=== PATIENT | female | born 1980 | race Caucasian/White ===

== ENCOUNTER 2017-09-14 19:26 | Observation (INO) | payer BC ==
--- NOTE | 2017-09-14 19:36 | EDM.PDOC ---
ED HPI GENERAL MEDICAL PROBLEM - General Chief Complaint: Abdominal Pain Stated Complaint: ABDOMINAL PAIN Time Seen by Provider: 09/14/17 19:29 Source of Information: Reports: Patient History Limitations: Reports: No Limitations - History of Present Illness INITIAL COMMENTS - FREE TEXT/NARRATIVE: HISTORY AND PHYSICAL: History of present illness: [36-year-old female presenting [place] with chief complaint of right lower quadrant pain intermittently over the past 7 days. Patient states that approximately 7 days ago she had some right lower quadrant pain. Describes it as sharp and radiating into her right lower quadrant and back. Pain seemed to go away for roughly 1-2 days and she thought it might be her normal menstrual cycle. She does have an IUD. However, pain came back and has been mostly in her right lower quadrant with some radiation into her back and right lower leg. She denies any history of abdominal surgery. She does have some history of bowel issues and family history of irritable bowel syndrome. Denies any hx of Crohn's or ulcerative colitis. She denies any associated fever , nausea, vomiting, dysuria, hematuria, chest pain, shortness breath, syncopal episodes, or focal neurologic deficits. Has been taking ibuprofen which seems to help some. She denies any allergies and has no primary care provider. Just moved here from [place]. On exam patient has tenderness to deep palpation right lower quadrant. Obturator and psoas sign are negative. 2005- Mild leukocytosis of 11.9 on CBC. 2039- CMP, Lipase, HCG unremarkable. ] Review of systems: As per history of present illness and below otherwise all systems reviewed and negative. Past medical history: As per history of present illness and as reviewed below otherwise noncontributory. Surgical history: As per history of present illness and as reviewed below otherwise noncontributory. Social history: No reported history of drug or alcohol abuse. Family history: As per history of present illness and as reviewed below otherwise noncontributory. Physical exam: HEENT: Atraumatic, normocephalic, pupils reactive, negative for conjunctival pallor or scleral icterus, mucous membranes moist, throat clear, neck supple, nontender, trachea midline. Lungs: Clear to auscultation, breath sounds equal bilaterally, chest nontender. Heart: S1S2, regular, negative for clicks, rubs, or JVD. Abdomen: Soft, nondistended, right lower quadrant pain on deep palpation. Negative for masses or hepatosplenomegaly. Negative for costovertebral tenderness. Pelvis: Stable nontender. Genitourinary: Deferred. Rectal: Deferred. Extremities: Atraumatic, negative for cords or calf pain. Neurovascular unremarkable. Neuro: Awake, alert, oriented. Cranial nerves II through XII unremarkable. Cerebellum unremarkable. Motor and sensory unremarkable throughout. Exam nonfocal. Diagnostics: CBC, CMP, lipase, UA/UC, CT abdomen pelvis, hCG Therapeutics: 1 L normal saline, 30 mg IV Toradol, Impression: Right lower quadrant pain Plan: CT showed a 2.6 cm cystic lesion within the right ovary as well as an apparent blind ending loop of bowel measuring 9 mm that was suspicious for possible distended appendix for early stage appendicitis. I did talk to the radiologist Dr. Kumari as well as Dr. Vargas, general surgery, who admitted patient for suspected early stage appendicitis. Definitive disposition and diagnosis as appropriate pending reevaluation and review of above. RLQ abdomen Pain Score (Numeric/FACES): 8 - Related Data Allergies Allergy/AdvReac Type Severity Reaction Status Date / Time No Known Allergies Allergy Verified 09/14/17 19:38 Home Meds: Home Meds . [No Known Home Meds] 09/14/17 [History] ED ROS GENERAL - Review of Systems Review Of Systems: ROS reveals no pertinent complaints other than HPI. ED EXAM, GENERAL - Physical Exam Exam: See Below Course - Vital Signs Last Recorded V/S: Last Vital Signs Temp 97.5 F 09/14/17 21:06 Pulse 72 09/14/17 21:06 Resp 18 09/14/17 21:06 BP 132/76 09/14/17 21:06 Pulse Ox 99 09/14/17 21:06 - Orders/Labs/Meds Orders: Active Orders 24 hr Category Date Time Status Abdomen Pelvis w Cont [CT] Stat Exams 09/14/17 19:56 Taken CULTURE URINE [RM] Stat Lab 09/14/17 19:40 Ordered HCG QUALITATIVE,URINE [URCHEM] Stat Lab 09/14/17 19:40 Ordered UA W/MICROSCOPIC [URIN] Stat Lab 09/14/17 19:40 Ordered Sodium Chloride 0.9% [Saline Flush] Med 09/14/17 19:56 Active 10 ml FLUSH ASDIRECTED PRN Sodium Chloride 0.9% [Saline Flush] Med 09/14/17 19:56 Active 2.5 ml FLUSH ASDIRECTED PRN Sodium Chloride 0.9% [Saline Flush] Med 09/14/17 19:56 Active 2.5 ml FLUSH ASDIRECTED PRN Saline Lock Insert [OM.PC] Stat Oth 09/14/17 19:56 Ordered Medication Orders Hydromorphone HCl (Dilaudid) 0.5 mg IVPUSH Q1H PRN PRN Reason: Pain (severe 7-10) Lactated Ringer's (Ringers, Lactated) 1,000 mls @ 125 mls/hr IV ASDIRECTED [place] Piperacillin Sod/Tazobactam (Sod 3.375 gm/ Sodium Chloride) 50 mls @ 100 mls/ hr IV Q8H [place] Ondansetron HCl (Zofran) 4 mg IVPUSH Q6H PRN PRN Reason: Nausea/Vomiting Oxycodone/Acetaminophen (Percocet 325-5 Mg) 2 tab PO Q4H PRN PRN Reason: Pain (moderate 4-6) Sodium Chloride (Saline Flush) 2.5 ml FLUSH ASDIRECTED PRN PRN Reason: Keep Vein Open Sodium Chloride (Saline Flush) 10 ml FLUSH ASDIRECTED PRN PRN Reason: Keep Vein Open Sodium Chloride (Saline Flush) 2.5 ml FLUSH ASDIRECTED PRN PRN Reason: Keep Vein Open Sodium Chloride (Saline Flush) 10 ml FLUSH ASDIRECTED PRN PRN Reason: Keep Vein Open Sodium Chloride (Saline Flush) 2.5 ml FLUSH ASDIRECTED PRN PRN Reason: Keep Vein Open Labs: Laboratory Tests 09/14/17 09/14/17 09/14/17 Range/Units 19:40 19:40 19:40 WBC 11.97 H (4.0-11.0) K/uL RBC 4.72 (4.30-5.90) M/uL Hgb 14.2 (12.0-16.0) g/dL Hct 42.4 (36.0-46.0) % MCV 89.8 (80.0-98.0) fL MCH 30.1 (27.0-32.0) pg MCHC 33.5 (31.0-37.0) g/dL RDW Std Deviation 41.9 (28.0-62.0) fl RDW Coeff of Gladys 13 (11.0-15.0) % Plt Count 492 H (150-400) K/uL MPV 9.30 (7.40-12.00) fL Neut % (Auto) 62.1 (48.0-80.0) % Lymph % (Auto) 31.9 (16.0-40.0) % [place] % (Auto) 5.0 (0.0-15.0) % Eos % (Auto) 0.6 (0.0-7.0) % Baso % (Auto) 0.4 (0.0-1.5) % Neut # (Auto) 7.4 H (1.4-5.7) K/uL Lymph # (Auto) 3.8 H (0.6-2.4) K/uL [place] # (Auto) 0.6 (0.0-0.8) K/uL Eos # (Auto) 0.1 (0.0-0.7) K/uL Baso # (Auto) 0.1 (0.0-0.1) K/uL Nucleated RBC % 0.0 /100WBC Nucleated RBCs # 0 K/uL Sodium (136-145) mmol/L Potassium (3.5-5.1) mmol/L Chloride (98-107) mmol/L Carbon Dioxide (21.0-32.0) mmol/L BUN (7.0-18.0) mg/dL Creatinine (0.6-1.0) mg/dL Est Cr Clr Drug Dosing mL/min Estimated GFR (MDRD) ml/min Glucose (74-106) mg/dL Calcium (8.5-10.1) mg/dL Total Bilirubin (0.2-1.0) mg/dL AST (15-37) IU/L ALT (14-63) IU/L Alkaline Phosphatase (46-116) U/L Total Protein (6.4-8.2) g/dL Albumin (3.4-5.0) g/dL Globulin (2.0-3.5) g/dL Albumin/Globulin Ratio (1.3-2.8) Lipase (73-393) U/L Urine Color YELLOW Urine Appearance SLT CLOUDY Urine pH 5.5 (5.0-8.0) Ur Specific [place] >= 1.030 (1.001-1.035) Urine Protein NEGATIVE (NEGATIVE) mg/dL Urine Glucose (UA) NEGATIVE (NEGATIVE) mg/dL Urine Ketones NEGATIVE (NEGATIVE) mg/dL Urine Occult Blood NEGATIVE (NEGATIVE) Urine Nitrite NEGATIVE (NEGATIVE) Urine Bilirubin NEGATIVE (NEGATIVE) Urine Urobilinogen 0.2 (<2.0) EU/dL Ur Leukocyte Esterase NEGATIVE (NEGATIVE) Urine RBC 0-2 (0-2/HPF) Urine WBC 1-3 (0-5/HPF) Ur Epithelial Cells FEW (NONE-FEW) Amorphous Sediment FEW (NEGATIVE) Urine Bacteria 1+ H (NEGATIVE) Urine Mucus FEW (NONE-MOD) Urine Sperm RARE (NEGATIVE) Urine HCG, Qual NEGATIVE (NEGATIVE) 09/14/17 Range/Units 19:40 WBC (4.0-11.0) K/uL RBC (4.30-5.90) M/uL Hgb (12.0-16.0) g/dL Hct (36.0-46.0) % MCV (80.0-98.0) fL MCH (27.0-32.0) pg MCHC (31.0-37.0) g/dL RDW Std Deviation (28.0-62.0) fl RDW Coeff of Gladys (11.0-15.0) % Plt Count (150-400) K/uL MPV (7.40-12.00) fL Neut % (Auto) (48.0-80.0) % Lymph % (Auto) (16.0-40.0) % [place] % (Auto) (0.0-15.0) % Eos % (Auto) (0.0-7.0) % Baso % (Auto) (0.0-1.5) % Neut # (Auto) (1.4-5.7) K/uL Lymph # (Auto) (0.6-2.4) K/uL [place] # (Auto) (0.0-0.8) K/uL Eos # (Auto) (0.0-0.7) K/uL Baso # (Auto) (0.0-0.1) K/uL Nucleated RBC % /100WBC Nucleated RBCs # K/uL Sodium 144 (136-145) mmol/L Potassium 3.5 (3.5-5.1) mmol/L Chloride 106 (98-107) mmol/L Carbon Dioxide 31.7 (21.0-32.0) mmol/L BUN 14 (7.0-18.0) mg/dL Creatinine 0.7 (0.6-1.0) mg/dL Est Cr Clr Drug Dosing 91.91 mL/min Estimated GFR (MDRD) > 60.0 ml/min Glucose 102 (74-106) mg/dL Calcium 9.2 (8.5-10.1) mg/dL Total Bilirubin 0.2 (0.2-1.0) mg/dL AST 17 (15-37) IU/L ALT 27 (14-63) IU/L Alkaline Phosphatase 49 (46-116) U/L Total Protein 7.3 (6.4-8.2) g/dL Albumin 3.9 (3.4-5.0) g/dL Globulin 3.4 (2.0-3.5) g/dL Albumin/Globulin Ratio 1.1 L (1.3-2.8) Lipase 357 (73-393) U/L Urine Color Urine Appearance Urine pH (5.0-8.0) Ur Specific [place] (1.001-1.035) Urine Protein (NEGATIVE) mg/dL Urine Glucose (UA) (NEGATIVE) mg/dL Urine Ketones (NEGATIVE) mg/dL Urine Occult Blood (NEGATIVE) Urine Nitrite (NEGATIVE) Urine Bilirubin (NEGATIVE) Urine Urobilinogen (<2.0) EU/dL Ur Leukocyte Esterase (NEGATIVE) Urine RBC (0-2/HPF) Urine WBC (0-5/HPF) Ur Epithelial Cells (NONE-FEW) Amorphous Sediment (NEGATIVE) Urine Bacteria (NEGATIVE) Urine Mucus (NONE-MOD) Urine Sperm (NEGATIVE) Urine HCG, Qual (NEGATIVE) Meds: Medications Generic Name Dose Route Start Last Admin Trade Name Freq PRN Reason Stop Dose Admin Hydromorphone HCl 0.5 mg 09/14/17 22:06 Dilaudid IVPUSH Q1H PRN Pain (severe 7-10) Lactated Ringer's 1,000 mls @ 125 mls/hr 09/14/17 22:15 Ringers, Lactated IV ASDIRECTED [place] Piperacillin Sod/Tazobactam 50 mls @ 100 mls/hr 09/14/17 22:15 Sod 3.375 gm/ Sodium Chloride IV Q8H [place] Ondansetron HCl 4 mg 09/14/17 22:06 Zofran IVPUSH Q6H PRN Nausea/Vomiting Oxycodone/Acetaminophen 2 tab 09/14/17 22:06 Percocet 325-5 Mg PO Q4H PRN Pain (moderate 4-6) Sodium Chloride 2.5 ml 09/14/17 19:56 Saline Flush FLUSH ASDIRECTED PRN Keep Vein Open Sodium Chloride 10 ml 09/14/17 19:56 Saline Flush FLUSH ASDIRECTED PRN Keep Vein Open Sodium Chloride 2.5 ml 09/14/17 19:56 Saline Flush FLUSH ASDIRECTED PRN Keep Vein Open Sodium Chloride 10 ml 09/14/17 22:06 Saline Flush FLUSH ASDIRECTED PRN Keep Vein Open Sodium Chloride 2.5 ml 09/14/17 22:06 Saline Flush FLUSH ASDIRECTED PRN Keep Vein Open Discontinued Medications Generic Name Dose Route Start Last Admin Trade Name Freq PRN Reason Stop Dose Admin Sodium Chloride 1,000 mls @ 999 mls/hr 09/14/17 19:56 09/14/17 20:03 Normal Saline IV 09/14/17 20:56 999 mls/hr .Bolus ONE Administration Iopamidol 80 ml 09/14/17 21:12 09/14/17 21:16 Isovue Multipack-370 (76%) IVPUSH 09/14/17 21:13 80 ml ONETIME ONE Administration Ketorolac Tromethamine 30 mg 09/14/17 19:56 09/14/17 20:03 Toradol IVPUSH 09/14/17 19:57 30 mg ONETIME ONE Administration Departure - Departure Time of Disposition: 22:18 Disposition: Admitted As Inpatient 66 Condition: Good Clinical Impression: Appendicitis, acute Qualifiers: Acute appendicitis type: with localized peritonitis Qualified Code(s): K35.3 - Acute appendicitis with localized peritonitis - Discharge Information - My Orders Last 24 Hours: My Active Orders 09/14/17 19:40 CULTURE URINE [RM] Stat HCG QUALITATIVE,URINE [URCHEM] Stat UA W/MICROSCOPIC [URIN] Stat 09/14/17 19:56 Abdomen Pelvis w Cont [CT] Stat Sodium Chloride 0.9% [Saline Flush] 10 ml FLUSH ASDIRECTED PRN Sodium Chloride 0.9% [Saline Flush] 2.5 ml FLUSH ASDIRECTED PRN Sodium Chloride 0.9% [Saline Flush] 2.5 ml FLUSH ASDIRECTED PRN Saline Lock Insert [OM.PC] Stat - Assessment/Plan Last 24 Hours: My Active Orders 09/14/17 19:40 CULTURE URINE [RM] Stat HCG QUALITATIVE,URINE [URCHEM] Stat UA W/MICROSCOPIC [URIN] Stat 09/14/17 19:56 Abdomen Pelvis w Cont [CT] Stat Sodium Chloride 0.9% [Saline Flush] 10 ml FLUSH ASDIRECTED PRN Sodium Chloride 0.9% [Saline Flush] 2.5 ml FLUSH ASDIRECTED PRN Sodium Chloride 0.9% [Saline Flush] 2.5 ml FLUSH ASDIRECTED PRN Saline Lock Insert [OM.PC] Stat
[2017-09-14] MEDS ORDERED: Ketorolac 30 MG/ML SDV IVPUSH ONE (19:56)
[2017-09-14] MEDS ORDERED: Sodium Chloride 0.9% 1,000 ML IV ONE (19:56)
[2017-09-14] MEDS ORDERED: Sodium Chloride 0.9% 2.5 ML Syringe FLUSH PRN ×3 (19:56→22:06)
[2017-09-14] MEDS ORDERED: Sodium Chloride 0.9% 10 ML Syringe FLUSH PRN ×2 (19:56→22:06)
[2017-09-14 20:17] LABS: CHLORIDE,CL 106 mmol/L (98-107); SODIUM,NA 144 mmol/L (136-145)
[2017-09-14] MEDS ORDERED: Iopamidol 755 MG/ML 200 ML Multipack Bottle IVPUSH ONE (21:12)
[2017-09-14] MEDS ORDERED: Ondansetron 4 MG/2 ML SDV IVPUSH PRN (22:06)
[2017-09-14] MEDS ORDERED: HYDROmorphone 2 MG/ML SDV IVPUSH PRN (22:06)
--- NOTE | 2017-09-14 22:15 | PCM.HP ---
H&P History of Present Illness - General Date of Service: 09/14/17 Admit Problem/Dx: Admission Diagnosis/Problem Admission Diagnosis/Problem Abdominal pain Source of Information: Patient History Limitations: Reports: No Limitations - History of Present Illness Initial Comments - Free Text/Narative: Patient is a 36 year old female who presents to the ER with one week of RLQ pain. She felt this was due to her period but it has been persistent. She moved here this week from [place]. She denies fevers, chills, nausea, anoriexia, vomiting, dysuria, diarrhea or change in bowel habits. She had a CBC that showed a leukocytosis of 11.97K. A CT abdomen pelvis was performed that showed a right ovarian cyst. There was a questionable dilated appendix vs a loop of small bowel in the RLQ as well. There was no surrounding inflammation. RLQ abdomen Pain Score (Numeric/FACES): 8 - Related Data Allergies/Adverse Reactions: Allergies Allergy/AdvReac Type Severity Reaction Status Date / Time No Known Allergies Allergy Verified 09/14/17 19:38 Home Medications: Home Meds . [No Known Home Meds] 09/14/17 [History] Past Medical History - Past Health History Medical/Surgical History: Denies Medical/Surgical History STUDIO HAND History: Reports: - Past Surgical History Female Surgical History: Reports: Section Social & Family History - Family History Family Medical History: Noncontributory - Tobacco Use Smoking Status *Q: Never Smoker - Recreational Drug Use Recreational Drug Use: No H&P Review of Systems - Review of Systems: Review Of Systems: ROS reveals no pertinent complaints other than HPI. Exam - Exam Exam: See Below - Vital Signs Vital Signs: Last Vital Signs Temp 36.4 C 09/14/17 21:06 Pulse 72 09/14/17 21:06 Resp 18 09/14/17 21:06 BP 132/76 09/14/17 21:06 Pulse Ox 99 09/14/17 21:06 Weight: 66.6 kg - Exam Quality Assessment: Supplemental Oxygen General: Alert, Oriented HEENT: Conjunctiva Clear, Mucosa Moist & [place], Posterior Pharynx Clear, Pupils Equal Neck: Supple Lungs: Clear to Auscultation, Normal Respiratory Effort Cardiovascular: Regular Rate, Regular Rhythm GI/Abdominal Exam: Soft, No Distention, No Mass, Tender (Mild tenderness just right of the suprapubic area. ). No: Guarding, Rigid, Rebound Extremities: Normal Inspection, Normal Range of Motion Skin: Warm, Dry, Intact Neuro Extensive - Mental Status: Alert, Oriented x3 - Patient Data Lab Results Last 24 hrs: Laboratory Results - last 24 hr 09/14/17 09/14/17 09/14/17 Range/Units 19:40 19:40 19:40 WBC 11.97 H (4.0-11.0) K/uL RBC 4.72 (4.30-5.90) M/uL Hgb 14.2 (12.0-16.0) g/dL Hct 42.4 (36.0-46.0) % MCV 89.8 (80.0-98.0) fL MCH 30.1 (27.0-32.0) pg MCHC 33.5 (31.0-37.0) g/dL RDW Std Deviation 41.9 (28.0-62.0) fl RDW Coeff of Gladys 13 (11.0-15.0) % Plt Count 492 H (150-400) K/uL MPV 9.30 (7.40-12.00) fL Neut % (Auto) 62.1 (48.0-80.0) % Lymph % (Auto) 31.9 (16.0-40.0) % [place] % (Auto) 5.0 (0.0-15.0) % Eos % (Auto) 0.6 (0.0-7.0) % Baso % (Auto) 0.4 (0.0-1.5) % Neut # (Auto) 7.4 H (1.4-5.7) K/uL Lymph # (Auto) 3.8 H (0.6-2.4) K/uL [place] # (Auto) 0.6 (0.0-0.8) K/uL Eos # (Auto) 0.1 (0.0-0.7) K/uL Baso # (Auto) 0.1 (0.0-0.1) K/uL Nucleated RBC % 0.0 /100WBC Nucleated RBCs # 0 K/uL Sodium (136-145) mmol/L Potassium (3.5-5.1) mmol/L Chloride (98-107) mmol/L Carbon Dioxide (21.0-32.0) mmol/L BUN (7.0-18.0) mg/dL Creatinine (0.6-1.0) mg/dL Est Cr Clr Drug Dosing mL/min Estimated GFR (MDRD) ml/min Glucose (74-106) mg/dL Calcium (8.5-10.1) mg/dL Total Bilirubin (0.2-1.0) mg/dL AST (15-37) IU/L ALT (14-63) IU/L Alkaline Phosphatase (46-116) U/L Total Protein (6.4-8.2) g/dL Albumin (3.4-5.0) g/dL Globulin (2.0-3.5) g/dL Albumin/Globulin Ratio (1.3-2.8) Lipase (73-393) U/L Urine Color YELLOW Urine Appearance SLT CLOUDY Urine pH 5.5 (5.0-8.0) Ur Specific [place] >= 1.030 (1.001-1.035) Urine Protein NEGATIVE (NEGATIVE) mg/dL Urine Glucose (UA) NEGATIVE (NEGATIVE) mg/dL Urine Ketones NEGATIVE (NEGATIVE) mg/dL Urine Occult Blood NEGATIVE (NEGATIVE) Urine Nitrite NEGATIVE (NEGATIVE) Urine Bilirubin NEGATIVE (NEGATIVE) Urine Urobilinogen 0.2 (<2.0) EU/dL Ur Leukocyte Esterase NEGATIVE (NEGATIVE) Urine RBC 0-2 (0-2/HPF) Urine WBC 1-3 (0-5/HPF) Ur Epithelial Cells FEW (NONE-FEW) Amorphous Sediment FEW (NEGATIVE) Urine Bacteria 1+ H (NEGATIVE) Urine Mucus FEW (NONE-MOD) Urine Sperm RARE (NEGATIVE) Urine HCG, Qual NEGATIVE (NEGATIVE) 09/14/17 Range/Units 19:40 WBC (4.0-11.0) K/uL RBC (4.30-5.90) M/uL Hgb (12.0-16.0) g/dL Hct (36.0-46.0) % MCV (80.0-98.0) fL MCH (27.0-32.0) pg MCHC (31.0-37.0) g/dL RDW Std Deviation (28.0-62.0) fl RDW Coeff of Gladys (11.0-15.0) % Plt Count (150-400) K/uL MPV (7.40-12.00) fL Neut % (Auto) (48.0-80.0) % Lymph % (Auto) (16.0-40.0) % [place] % (Auto) (0.0-15.0) % Eos % (Auto) (0.0-7.0) % Baso % (Auto) (0.0-1.5) % Neut # (Auto) (1.4-5.7) K/uL Lymph # (Auto) (0.6-2.4) K/uL [place] # (Auto) (0.0-0.8) K/uL Eos # (Auto) (0.0-0.7) K/uL Baso # (Auto) (0.0-0.1) K/uL Nucleated RBC % /100WBC Nucleated RBCs # K/uL Sodium 144 (136-145) mmol/L Potassium 3.5 (3.5-5.1) mmol/L Chloride 106 (98-107) mmol/L Carbon Dioxide 31.7 (21.0-32.0) mmol/L BUN 14 (7.0-18.0) mg/dL Creatinine 0.7 (0.6-1.0) mg/dL Est Cr Clr Drug Dosing 91.91 mL/min Estimated GFR (MDRD) > 60.0 ml/min Glucose 102 (74-106) mg/dL Calcium 9.2 (8.5-10.1) mg/dL Total Bilirubin 0.2 (0.2-1.0) mg/dL AST 17 (15-37) IU/L ALT 27 (14-63) IU/L Alkaline Phosphatase 49 (46-116) U/L Total Protein 7.3 (6.4-8.2) g/dL Albumin 3.9 (3.4-5.0) g/dL Globulin 3.4 (2.0-3.5) g/dL Albumin/Globulin Ratio 1.1 L (1.3-2.8) Lipase 357 (73-393) U/L Urine Color Urine Appearance Urine pH (5.0-8.0) Ur Specific [place] (1.001-1.035) Urine Protein (NEGATIVE) mg/dL Urine Glucose (UA) (NEGATIVE) mg/dL Urine Ketones (NEGATIVE) mg/dL Urine Occult Blood (NEGATIVE) Urine Nitrite (NEGATIVE) Urine Bilirubin (NEGATIVE) Urine Urobilinogen (<2.0) EU/dL Ur Leukocyte Esterase (NEGATIVE) Urine RBC (0-2/HPF) Urine WBC (0-5/HPF) Ur Epithelial Cells (NONE-FEW) Amorphous Sediment (NEGATIVE) Urine Bacteria (NEGATIVE) Urine Mucus (NONE-MOD) Urine Sperm (NEGATIVE) Urine HCG, Qual (NEGATIVE) Result Diagrams: 09/14/17 19:40 09/14/17 19:40 - Problem List (1) Abdominal pain SNOMED Code(s): 20433630 ICD Code: R10.9 - UNSPECIFIED ABDOMINAL PAIN Status: Acute Current Visit : Yes (2) Ovarian cyst SNOMED Code(s): 64752903 ICD Code: N83.209 - UNSPECIFIED OVARIAN CYST, UNSPECIFIED SIDE Status: Acute Current Visit: Yes Problem List Initiated/Reviewed/Updated: Yes Orders Last 24hrs: Active Orders 24 hr Category Date Time Status Patient Status [ADT] Routine ADT 09/14/17 22:06 Ordered Oxygen Therapy [RC] PRN Care 09/14/17 22:06 Ordered Up ad Eveline [RC] ASDIRECTED Care 09/14/17 22:06 Ordered Vital Signs [RC] PER UNIT ROUTINE Care 09/14/17 22:06 Ordered Nothing Per Oral Diet [DIET] Diet 09/14/17 Dinner Ordered Abdomen Pelvis w Cont [CT] Stat Exams 09/14/17 19:56 Taken CBC WITH AUTO DIFF [HEME] AM Lab 09/15/17 05:11 Ordered CULTURE URINE [RM] Stat Lab 09/14/17 19:40 Ordered HCG QUALITATIVE,URINE [URCHEM] Stat Lab 09/14/17 19:40 Ordered UA W/MICROSCOPIC [URIN] Stat Lab 09/14/17 19:40 Ordered Acetaminophen/oxyCODONE [Percocet 325-5 MG] Med 09/14/17 22:06 Ordered 2 tab PO Q4H PRN HYDROmorphone [Dilaudid] Med 09/14/17 22:06 Ordered 0.5 mg IVPUSH Q1H PRN Lactated Ringers @ 125 MLS/HR(1000ml) Med 09/14/17 22:15 Ordered Lactated Ringers [Ringers, Lactated] 1,000 ml IV ASDIRECTED Ondansetron [Zofran] Med 09/14/17 22:06 Ordered 4 mg IVPUSH Q6H PRN Piperacillin/Tazobactam [Piperacil-Tazobact] 3.375 gm Med 09/14/17 22:15 Ordered Sodium Chloride 0.9% [Normal Saline] 50 ml IV Q8H Sodium Chloride 0.9% [Saline Flush] Med 09/14/17 19:56 Active 10 ml FLUSH ASDIRECTED PRN Sodium Chloride 0.9% [Saline Flush] Med 09/14/17 22:06 Ordered 10 ml FLUSH ASDIRECTED PRN Sodium Chloride 0.9% [Saline Flush] Med 09/14/17 19:56 Active 2.5 ml FLUSH ASDIRECTED PRN Sodium Chloride 0.9% [Saline Flush] Med 09/14/17 19:56 Active 2.5 ml FLUSH ASDIRECTED PRN Sodium Chloride 0.9% [Saline Flush] Med 09/14/17 22:06 Ordered 2.5 ml FLUSH ASDIRECTED PRN Peripheral IV Insertion Adult [OM.PC] Urgent Oth 09/14/17 22:06 Ordered Saline Lock Insert [OM.PC] Stat Oth 09/14/17 19:56 Ordered Resuscitation Status Routine Resus Stat 09/14/17 22:06 Ordered Medication Orders Hydromorphone HCl (Dilaudid) 0.5 mg IVPUSH Q1H PRN PRN Reason: Pain (severe 7-10) Lactated Ringer's (Ringers, Lactated) 1,000 mls @ 125 mls/hr IV ASDIRECTED [place] Ondansetron HCl (Zofran) 4 mg IVPUSH Q6H PRN PRN Reason: Nausea/Vomiting Oxycodone/Acetaminophen (Percocet 325-5 Mg) 2 tab PO Q4H PRN PRN Reason: Pain (moderate 4-6) Sodium Chloride (Saline Flush) 2.5 ml FLUSH ASDIRECTED PRN PRN Reason: Keep Vein Open Sodium Chloride (Saline Flush) 10 ml FLUSH ASDIRECTED PRN PRN Reason: Keep Vein Open Sodium Chloride (Saline Flush) 2.5 ml FLUSH ASDIRECTED PRN PRN Reason: Keep Vein Open Sodium Chloride (Saline Flush) 10 ml FLUSH ASDIRECTED PRN PRN Reason: Keep Vein Open Sodium Chloride (Saline Flush) 2.5 ml FLUSH ASDIRECTED PRN PRN Reason: Keep Vein Open Assessment/Plan Comment:: I reviewed the CT and do not see evidence of appendicitis. Her story is not classic for appendicitis. I believe her ovarian cyst is the cause of her pain and mild leukocytosis. I will admit to the hospital overnight for observation. Will keep her NPO, give IV fluids, and IV zosyn. Will recheck her labs in the morning. If her abdominal pain gets worse or WBC elevates will re-visit the possibility of appendicitis.
[2017-09-14] MEDS: Lactated Ringers 1,000 ML IV SCH (22:21)
[2017-09-14] MEDS: Piperacillin/Tazobactam 3.375 GM in Sodium Chloride 0.9% 50 ML IV SCH (22:22)
[2017-09-14] MEDS: Acetaminophen/oxyCODONE 325-5 MG Tab PO PRN (23:14)
[2017-09-15] MEDS: Piperacillin/Tazobactam 3.375 GM in Sodium Chloride 0.9% 50 ML IV SCH (05:31)
[2017-09-15] MEDS: Lactated Ringers 1,000 ML IV SCH (06:23)
[2017-09-15] MEDS ORDERED: metroNIDAZOLE 250 MG Tab PO SCH (06:45)
[2017-09-15] MEDS ORDERED: HYDROmorphone 1 MG/ML Syringe IVPUSH PRN (07:45)
[2017-09-15] MEDS: Ciprofloxacin 500 MG Tab PO SCH ×2 (07:49→09:41)
[2017-09-15] MEDS: Acetaminophen/oxyCODONE 325-5 MG Tab PO PRN (07:53)
--- NOTE | 2017-09-15 12:01 | PCM.DCSUM1 ---
Discharge Summary - Hospital Course Free Text/Narrative:: Patient is a 36-year-old female who presented to the emergency room with right lower quadrant pain for one week. CT the abdomen and pelvis revealed a right ovarian cyst. There was a questionable enlargement of the appendix on CT. A CBC showed a white count of 12K. there was no evidence of a left shift. She was admitted overnight for IV fluids, IV antibiotics, and bowel rest. This morning she still has soreness in her right lower quadrant. On physical exam however the pain appears to be less. There is no guarding rebound or tenderness to suggest peritoneal inflammation. Her vital signs were stable overnight. Her diet was advanced to regular which she tolerated without difficulty. The pain was well-controlled with Percocet. She was cleared for discharge with follow-up with a clamp jig assembler as well as myself in 1-2 weeks. - Discharge Data Discharge Date: 09/15/17 Discharge Disposition: Home, Self-Care 01 Condition: Fair - Discharge Diagnosis/Problem(s) (1) Abdominal pain SNOMED Code(s): 39281134 ICD Code: R10.9 - UNSPECIFIED ABDOMINAL PAIN Status: Acute (2) Ovarian cyst SNOMED Code(s): 23243763 ICD Code: N83.209 - UNSPECIFIED OVARIAN CYST, UNSPECIFIED SIDE Status: Acute - Patient Instructions Diet: Regular Diet as Tolerated Activity: Rest and Relax Today Driving: Do Not Drive Showering/Bathing: May Shower Notify Provider of: Fever, Increased Pain, Nausea and/or Vomiting - Discharge Plan *PRESCRIPTION DRUG MONITORING PROGRAM REVIEWED*: No *COPY OF PRESCRIPTION DRUG MONITORING REPORT IN PATIENT MANINDER: No Home Medications: Home Meds . [No Known Home Meds] 09/14/17 [History] Patient Handouts: Acetaminophen; Oxycodone tablets, Ketorolac tablets, Ciprofloxacin tablets, Metronidazole tablets or capsules Forms: ED Department Discharge Referrals: PCP,None [Primary Care Provider] - - General Info Functional Status: Reports: Pain Controlled, Tolerating Diet, Urinating - Review of Systems General: Reports: No Symptoms HEENT: Reports: No Symptoms Pulmonary: Reports: No Symptoms Cardiovascular: Reports: No Symptoms Gastrointestinal: Reports: No Symptoms Genitourinary: Reports: No Symptoms - Patient Data Vitals - Most Recent: Last Vital Signs Temp 36.7 C 09/15/17 08:00 Pulse 74 09/15/17 08:00 Resp 16 07/20/18 08:00 BP 135/81 09/15/17 08:00 Pulse Ox 100 09/15/17 08:00 Weight - Most Recent: 68.039 kg I&O - Last 24 hours: Intake & Output 09/14/17 09/15/17 09/15/17 22:59 06:59 14:59 Intake Total 110 Output Total 400 Balance -290 Lab Results - Last 24 hrs: Laboratory Results - last 24 hr 09/14/17 09/14/17 09/14/17 Range/Units 19:40 19:40 19:40 WBC 11.97 H (4.0-11.0) K/uL RBC 4.72 (4.30-5.90) M/uL Hgb 14.2 (12.0-16.0) g/dL Hct 42.4 (36.0-46.0) % MCV 89.8 (80.0-98.0) fL MCH 30.1 (27.0-32.0) pg MCHC 33.5 (31.0-37.0) g/dL RDW Std Deviation 41.9 (28.0-62.0) fl RDW Coeff of Gladys 13 (11.0-15.0) % Plt Count 492 H (150-400) K/uL MPV 9.30 (7.40-12.00) fL Neut % (Auto) 62.1 (48.0-80.0) % Lymph % (Auto) 31.9 (16.0-40.0) % [place] % (Auto) 5.0 (0.0-15.0) % Eos % (Auto) 0.6 (0.0-7.0) % Baso % (Auto) 0.4 (0.0-1.5) % Neut # (Auto) 7.4 H (1.4-5.7) K/uL Lymph # (Auto) 3.8 H (0.6-2.4) K/uL [place] # (Auto) 0.6 (0.0-0.8) K/uL Eos # (Auto) 0.1 (0.0-0.7) K/uL Baso # (Auto) 0.1 (0.0-0.1) K/uL Nucleated RBC % 0.0 /100WBC Nucleated RBCs # 0 K/uL Sodium (136-145) mmol/L Potassium (3.5-5.1) mmol/L Chloride (98-107) mmol/L Carbon Dioxide (21.0-32.0) mmol/L BUN (7.0-18.0) mg/dL Creatinine (0.6-1.0) mg/dL Est Cr Clr Drug Dosing mL/min Estimated GFR (MDRD) ml/min Glucose (74-106) mg/dL Calcium (8.5-10.1) mg/dL Total Bilirubin (0.2-1.0) mg/dL AST (15-37) IU/L ALT (14-63) IU/L Alkaline Phosphatase (46-116) U/L Total Protein (6.4-8.2) g/dL Albumin (3.4-5.0) g/dL Globulin (2.0-3.5) g/dL Albumin/Globulin Ratio (1.3-2.8) Lipase (73-393) U/L Urine Color YELLOW Urine Appearance SLT CLOUDY Urine pH 5.5 (5.0-8.0) Ur Specific [place] >= 1.030 (1.001-1.035) Urine Protein NEGATIVE (NEGATIVE) mg/dL Urine Glucose (UA) NEGATIVE (NEGATIVE) mg/dL Urine Ketones NEGATIVE (NEGATIVE) mg/dL Urine Occult Blood NEGATIVE (NEGATIVE) Urine Nitrite NEGATIVE (NEGATIVE) Urine Bilirubin NEGATIVE (NEGATIVE) Urine Urobilinogen 0.2 (<2.0) EU/dL Ur Leukocyte Esterase NEGATIVE (NEGATIVE) Urine RBC 0-2 (0-2/HPF) Urine WBC 1-3 (0-5/HPF) Ur Epithelial Cells FEW (NONE-FEW) Amorphous Sediment FEW (NEGATIVE) Urine Bacteria 1+ H (NEGATIVE) Urine Mucus FEW (NONE-MOD) Urine Sperm RARE (NEGATIVE) Urine HCG, Qual NEGATIVE (NEGATIVE) 09/14/17 09/15/17 Range/Units 19:40 05:30 WBC 8.19 (4.0-11.0) K/uL RBC 3.73 L (4.30-5.90) M/uL Hgb 10.9 L (12.0-16.0) g/dL Hct 33.8 L (36.0-46.0) % MCV 90.6 (80.0-98.0) fL MCH 29.2 (27.0-32.0) pg MCHC 32.2 (31.0-37.0) g/dL RDW Std Deviation 43.4 (28.0-62.0) fl RDW Coeff of Gladys 13 (11.0-15.0) % Plt Count 360 (150-400) K/uL MPV 9.00 (7.40-12.00) fL Neut % (Auto) 49.9 (48.0-80.0) % Lymph % (Auto) 42.9 H (16.0-40.0) % [place] % (Auto) 5.5 (0.0-15.0) % Eos % (Auto) 1.2 (0.0-7.0) % Baso % (Auto) 0.5 (0.0-1.5) % Neut # (Auto) 4.1 (1.4-5.7) K/uL Lymph # (Auto) 3.5 H (0.6-2.4) K/uL [place] # (Auto) 0.5 (0.0-0.8) K/uL Eos # (Auto) 0.1 (0.0-0.7) K/uL Baso # (Auto) 0.0 (0.0-0.1) K/uL Nucleated RBC % 0.0 /100WBC Nucleated RBCs # 0 K/uL Sodium 144 (136-145) mmol/L Potassium 3.5 (3.5-5.1) mmol/L Chloride 106 (98-107) mmol/L Carbon Dioxide 31.7 (21.0-32.0) mmol/L BUN 14 (7.0-18.0) mg/dL Creatinine 0.7 (0.6-1.0) mg/dL Est Cr Clr Drug Dosing 91.91 mL/min Estimated GFR (MDRD) > 60.0 ml/min Glucose 102 (74-106) mg/dL Calcium 9.2 (8.5-10.1) mg/dL Total Bilirubin 0.2 (0.2-1.0) mg/dL AST 17 (15-37) IU/L ALT 27 (14-63) IU/L Alkaline Phosphatase 49 (46-116) U/L Total Protein 7.3 (6.4-8.2) g/dL Albumin 3.9 (3.4-5.0) g/dL Globulin 3.4 (2.0-3.5) g/dL Albumin/Globulin Ratio 1.1 L (1.3-2.8) Lipase 357 (73-393) U/L Urine Color Urine Appearance Urine pH (5.0-8.0) Ur Specific [place] (1.001-1.035) Urine Protein (NEGATIVE) mg/dL Urine Glucose (UA) (NEGATIVE) mg/dL Urine Ketones (NEGATIVE) mg/dL Urine Occult Blood (NEGATIVE) Urine Nitrite (NEGATIVE) Urine Bilirubin (NEGATIVE) Urine Urobilinogen (<2.0) EU/dL Ur Leukocyte Esterase (NEGATIVE) Urine RBC (0-2/HPF) Urine WBC (0-5/HPF) Ur Epithelial Cells (NONE-FEW) Amorphous Sediment (NEGATIVE) Urine Bacteria (NEGATIVE) Urine Mucus (NONE-MOD) Urine Sperm (NEGATIVE) Urine HCG, Qual (NEGATIVE) Med Orders - Current: Current Medications Discontinued Medications Ciprofloxacin (Ciprofloxacin Hcl) 500 mg PO BID [facility] Last Admin: 09/15/17 09:41 Dose: Not Given Hydromorphone HCl (Dilaudid) 0.5 mg IVPUSH Q1H PRN PRN Reason: Pain (severe 7-10) Hydromorphone HCl (Dilaudid) 0.5 mg IVPUSH Q1H PRN PRN Reason: Pain (severe 7-10) Sodium Chloride (Normal Saline) 1,000 mls @ 999 mls/hr IV .Bolus ONE Stop: 09/14/17 20:56 Last Admin: 09/14/17 20:03 Dose: 999 mls/hr Lactated Ringer's (Ringers, Lactated) 1,000 mls @ 125 mls/hr IV ASDIRECTED [facility] Last Admin: 09/15/17 06:23 Dose: 125 mls/hr Piperacillin Sod/Tazobactam (Sod 3.375 gm/ Sodium Chloride) 50 mls @ 100 mls/ hr IV Q8H [facility] Last Infusion: 09/15/17 06:05 Dose: Infused Iopamidol (Isovue Multipack-370 (76%)) 80 ml IVPUSH ONETIME ONE Stop: 09/14/17 21:13 Last Admin: 09/14/17 21:16 Dose: 80 ml Ketorolac Tromethamine (Toradol) 30 mg IVPUSH ONETIME ONE Stop: 09/14/17 19:57 Last Admin: 09/14/17 20:03 Dose: 30 mg Metronidazole (Metronidazole) 250 mg PO QID [place] Last Admin: 09/15/17 07:49 Dose: 250 mg Ondansetron HCl (Zofran) 4 mg IVPUSH Q6H PRN PRN Reason: Nausea/Vomiting Oxycodone/Acetaminophen (Percocet 325-5 Mg) 2 tab PO Q4H PRN PRN Reason: Pain (moderate 4-6) Last Admin: 09/15/17 07:53 Dose: 2 tab Sodium Chloride (Saline Flush) 2.5 ml FLUSH ASDIRECTED PRN PRN Reason: Keep Vein Open Sodium Chloride (Saline Flush) 10 ml FLUSH ASDIRECTED PRN PRN Reason: Keep Vein Open Sodium Chloride (Saline Flush) 2.5 ml FLUSH ASDIRECTED PRN PRN Reason: Keep Vein Open Sodium Chloride (Saline Flush) 10 ml FLUSH ASDIRECTED PRN PRN Reason: Keep Vein Open Sodium Chloride (Saline Flush) 2.5 ml FLUSH ASDIRECTED PRN PRN Reason: Keep Vein Open - Exam General: Reports: Alert, Oriented Lungs: Reports: Normal Respiratory Effort Cardiovascular: Reports: Regular Rate GI/Abdominal Exam: Soft, Tender (mild tenderness along right suprapubic area)
--- NOTE | 2017-09-15 16:43 | CT ---
EXAM DATE: 09/14/17 PATIENT'S AGE: 36 Patient: AMADA RAMOS Facility: [place], [place] Site . Site : [id number] Study: CT Abdomen/Pelvis w annmarie [id number]/19/2018 9:12:08 PM Ordering Physician: Anthony Crespo Final Report: INDICATION: 7 days of increasing right lower quadrant pain TECHNIQUE: CT Abdomen and pelvis with i.v. contrast in the delayed phase. Coronal and sagittal reformats were obtained. CONTRAST: 80 mL Isovue 370 COMPARISON: None FINDINGS: Evaluation of the viscera is severely limited by the delayed phase of imaging. Lower chest: Unremarkable. Liver: Unremarkable. Spleen: Unremarkable. Pancreas: Unremarkable. Gallbladder: Unremarkable. Kidney: Excretion of contrast into the renal collecting systems and ureters are noted, which limits evaluation for the presence of stones. Adrenal: Unremarkable. Bowel: There is an apparent blind ending loop of bowel measuring 9 mm in diameter in the right lower quadrant on image 109 with no surrounding inflammatory changes. The appendix is normal in appearance and size. Vascular: Unremarkable. Lymph: Unremarkable. Peritoneum: Unremarkable. No pneumoperitoneum is seen. No significant ascites is noted. Pelvis: There is a 2.6 cm cystic lesion present within the right ovary. An IUD is present in the uterine cavity near the fundus with no identified complications. Soft tissue: Unremarkable. Bone: Unremarkable for age. IMPRESSIONS: 1. There is a 2.6 cm cystic lesion present within the right ovary. 2. There is an apparent blind ending loop of bowel measuring 9 mm in diameter in the right lower quadrant on image 109 with no surrounding inflammatory changes. This may represent a distended appendix which can be due to early stage appendicitis or an ectatic normal variant. Clinical follow-up is advised. Dictated by Lux Kumari MD @ 09/14/2017 9:20:19 PM Please note that all CT scans at this facility use dose modulation, iterative reconstruction, and/or weight-based dosing when appropriate to reduce radiation dose to as low as reasonably achievable. Dictated by: Lux Kumari MD @ 09/14/2017 21:20:22 (Electronic Signature) Report Signed by Proxy. NEPONS[facility] BE[facility] HOSPITALSadie
== END 2017-09-15 10:40 | disposition home or self-care (01) ==
LOC: MW.ED 19:26 → MW.MS 22:06
PROVIDERS: ADMIT Surgery; ATTEND Surgery
DX: N83.201 Unspecified ovarian cyst, right side (principal); D72.829 Elevated white blood cell count, unspecified
CPT/HCPCS: 36415; 74177; 74177-26; 80053; 81001; 81025; 83690; 85025; 87086; 96361; 96365; 96366; 96374; 96375; 99285-25; A9270-GY; G0378; J1885; J2543; J7040; J7050; J7120; Q9967